=== PATIENT | male | born 1980 | race Caucasian/White ===

== ENCOUNTER 2019-01-09 19:15 | Emergency (ER) | payer OTHER ==
[~2019-01-09] VITALS: Ht 180.3 cm; Wt 104.5 kg
[2019-01-09 19:25] VITALS: Ht 180.3 cm; Wt 104.5 kg
[2019-01-09] MEDS ORDERED: [UNRECOGNIZED DRUG - OTHER] (19:26)
[2019-01-09 21:23] VITALS: BP 122/78
== END 2019-01-09 21:23 | disposition home or self-care (01) ==
LOC: D.ER 19:15
DX: S51.811A Laceration without foreign body of right forearm, initial encounter (principal); W26.8XXA Contact with other sharp object(s), not elsewhere classified, initial encounter; F17.210 Nicotine dependence, cigarettes, uncomplicated